=== PATIENT | male | born 1985 | race Caucasian/White ===

== ENCOUNTER 2023-11-29 09:43 | Emergency (ER) | payer BC ==
[~2023-11-29] VITALS: Ht 167.6 cm; Wt 90.7 kg
[2023-11-29 10:02] VITALS: BP 134/86; PULSE 73; RESP 17; TEMP 97.4; O2SAT 98
[2023-11-29] MEDS ORDERED: SODI1PKT7 NS (12:02)
[2023-11-29] MEDS ORDERED: LORA1T1237 PO (12:02)
[2023-11-29 12:20] VITALS: BP 132/70; PULSE 79; RESP 18; TEMP 97.3; O2SAT 99
== END 2023-11-29 12:27 | disposition home or self-care (01) ==
LOC: MED 09:43
DX: R42 Dizziness and giddiness (principal); J32.9 Chronic sinusitis, unspecified; Z79.899 Other long term (current) drug therapy
CPT/HCPCS: 82948; 93005; 99283